=== PATIENT | male | born 1990 | race Caucasian/White ===

== ENCOUNTER 2017-12-07 16:16 | Emergency (ER) | payer SELFPAY ==
[~2017-12-07] VITALS: Ht 167.6 cm; Wt 59.0 kg
[2017-12-07 16:45] VITALS: BP 134/81
== END 2017-12-07 16:49 | disposition left against medical advice (07) ==
LOC: ER 16:16
DX: Z00.01 Encounter for general adult medical examination with abnormal findings (principal)
CPT/HCPCS: 99281